=== PATIENT | female | born 1990 | race Caucasian/White ===

== ENCOUNTER 2017-06-01 21:01 | Emergency (ER) | payer SELFPAY, OTHER | END 2017-06-02 03:00 | disposition left against medical advice (07) | LOC: E/R 21:01 | DX: Z53.21 Procedure and treatment not carried out due to patient leaving prior to being seen by health care provider (principal) ==

== ENCOUNTER 2017-09-24 10:19 | Emergency (ER) | payer OTHER ==
[2017-09-24] MEDS: ALBUTEROL 0.083% (NEB) 2.5 MG/3 ML AMP NEB (11:14)
[2017-09-24] MEDS ORDERED: CEFTRIAXONE 1 GM INJ IM (12:00)
[2017-09-24] MEDS: CEFTRIAXONE 1 GM/50 ML (PMX) 50 ML IVPB (12:36)
== END 2017-09-24 13:27 | disposition home or self-care (01) ==
LOC: E/R 10:19
DX: J18.1 Lobar pneumonia, unspecified organism (principal); S90.412A Abrasion, left great toe, initial encounter; F17.210 Nicotine dependence, cigarettes, uncomplicated; V89.2XXA Person injured in unspecified motor-vehicle accident, traffic, initial encounter
CPT/HCPCS: 71045; 73630-LT; 94664; 96374; 99284-25